=== PATIENT | male | born 1955 | race African-American/Black ===

== ENCOUNTER 2016-07-23 12:14 | Inpatient (IN) | payer MEDICARE, MEDICAID ==
[~2016-07-23] VITALS: Ht 182.9 cm; Wt 105.1 kg
[2016-07-23 13:02] LABS: BASOPHILS # (AUTO) 0.01 K/uL (0.00-0.20); BASOPHILS % (AUTO) 0.3 % (0.0-2.0); EOSINOPHILS # (AUTO) 0.16 K/uL (0.00-0.70); HEMOGLOBIN 14.3 g/dL (13.5-17.5); LYMPHOCYTES # (AUTO) 1.1 K/uL (1.0-4.8); LYMPHOCYTES % (AUTO) 28.4 % (22.0-44.0); MEAN CORPUSCULAR HEMOGLOBIN 27.7 pg (26.0-34.0); MEAN CORPUSCULAR HGB CONC 33.3 G/dL (31.0-37.0); MEAN CORPUSCULAR VOLUME 83 fL (80-100); MONOCYTES # (AUTO) 0.4 K/uL (0.1-1.0); MONOCYTES % (AUTO) 9.1 % (2.0-9.0); NEUTROPHILS # (AUTO) 2.4 K/uL (1.8-7.7); NEUTROPHILS % (AUTO) 58.3 % (40.0-70.0); PLATELET COUNT (AUTO) 286 K/uL (150-450); RED BLOOD CELL COUNT(AUTO) 5.17 MIL/uL (4.50-5.90); RED CELL DISTRIBUTION WIDTH 15.2 % (11.5-14.5)
[2016-07-23 13:11] LABS: RBC MORPHOLOGY COMMENT NORMAL RBC MORPH
[2016-07-23 13:14] LABS: ANION GAP 11 mmol/L (8-16); CALCIUM, TOTAL 8.7 mg/dL (8.8-10.5); CARBON DIOXIDE 29 mmol/L (22-29); CHLORIDE 99 mmol/L (98-107); GLOMERULAR FILTR. RATE CALC > 60 mL/min (>60); POTASSIUM 3.7 mmol/L (3.5-5.1); SODIUM SERUM 139 mmol/L (136-145); UREA NITROGEN, BLOOD 9 mg/dL (7-18)
[2016-07-23 13:19] LABS: ALANINE AMINOTRANSFERASE 21 U/L (12-78); ASPARTATE AMINOTRANSFERASE 22 U/L (15-37); BILIRUBIN,TOTAL 0.9 mg/dL (0.1-1.0)
[2016-07-23] MEDS ORDERED: HALOPERIDOL 5 MG TABLET PO PRN (14:45)
[2016-07-23 17:15] VITALS: BP 140/84
[2016-07-23 19:14] LABS: CHOL/HDL RATIO 4.1 (4.2-7.3)
[2016-07-23 19:51] LABS: ADD UA MICROSCOPIC NO; APPEARANCE,URINE CLEAR (CLEAR); GLUCOSE, URINE (UA) NEGATIVE (NEGATIVE); KETONES,URINE NEGATIVE (NEGATIVE); LEUKOCYTE ESTERASE ,URINE NEGATIVE (NEGATIVE); OCCULT BLOOD,URINE NEGATIVE (NEGATIVE); PH,URINE 6.5 (5.0-8.0); PROTEIN,URINE NEGATIVE (NEGATIVE)
[2016-07-23] MEDS: ZOLPIDEM TARTRATE 10 MG TABLET PO PRN (20:55)
[2016-07-23] MEDS: IBUPROFEN 400 MG TABLET PO PRN (20:56)
[2016-07-23 20:57] VITALS: BP 135/69
[2016-07-24 08:17] VITALS: BP 131/67
[2016-07-24 17:22] VITALS: BP 140/96
[2016-07-24] MEDS: ZOLPIDEM TARTRATE 10 MG TABLET PO PRN (21:03)
[2016-07-24] MEDS: IBUPROFEN 400 MG TABLET PO PRN (21:03)
[2016-07-25] MEDS: CITALOPRAM HYDROBROMIDE 20 MG TABLET PO SCH (08:16)
[2016-07-25 08:18] VITALS: BP 134/85
[2016-07-25 17:00] VITALS: BP 129/79
[2016-07-25] MEDS: ZOLPIDEM TARTRATE 10 MG TABLET PO PRN (21:15)
[2016-07-26] MEDS: IBUPROFEN 400 MG TABLET PO PRN (00:17)
[2016-07-26 00:18] VITALS: BP 137/91
[2016-07-26] MEDS: LORazepam 2 MG TABLET PO PRN (00:18)
[2016-07-26] MEDS: MEMANTINE HCL 5 MG TABLET PO SCH ×2 (08:21→16:02)
[2016-07-26] MEDS: CITALOPRAM HYDROBROMIDE 20 MG TABLET PO SCH (08:21)
[2016-07-26 09:45] VITALS: BP 126/77
[2016-07-26 16:39] VITALS: BP 142/72
[2016-07-27 07:56] LABS: BASOPHILS # (AUTO) 0.02 K/uL (0.00-0.20); BASOPHILS % (AUTO) 0.4 % (0.0-2.0); EOSINOPHILS # (AUTO) 0.11 K/uL (0.00-0.70); EOSINOPHILS % (AUTO) 2.63 % (1.0-6.0); HEMATOCRIT 42.1 % (41-53); HEMOGLOBIN 14.2 g/dL (13.5-17.5); LYMPHOCYTES # (AUTO) 1.3 K/uL (1.0-4.8); LYMPHOCYTES % (AUTO) 30.7 % (22.0-44.0); MEAN CORPUSCULAR HEMOGLOBIN 27.9 pg (26.0-34.0); MEAN CORPUSCULAR HGB CONC 33.8 G/dL (31.0-37.0); MEAN CORPUSCULAR VOLUME 83 fL (80-100); MONOCYTES # (AUTO) 0.5 K/uL (0.1-1.0); MONOCYTES % (AUTO) 10.7 % (2.0-9.0); NEUTROPHILS # (AUTO) 2.4 K/uL (1.8-7.7); NEUTROPHILS % (AUTO) 55.5 % (40.0-70.0); PLATELET COUNT (AUTO) 272 K/uL (150-450); RED BLOOD CELL COUNT(AUTO) 5.08 MIL/uL (4.50-5.90); RED CELL DISTRIBUTION WIDTH 15.2 % (11.5-14.5); WHITE BLOOD COUNT (AUTO) 4.2 K/uL (4.5-11.0)
[2016-07-27 08:00] VITALS: BP 117/71
[2016-07-27] MEDS: CITALOPRAM HYDROBROMIDE 20 MG TABLET PO SCH (08:15)
[2016-07-27] MEDS: MEMANTINE HCL 5 MG TABLET PO SCH ×2 (08:15→16:36)
[2016-07-27] MEDS: BENZOCAINE 10% 7 GM GEL TP PRN (09:29)
[2016-07-27] MEDS: IBUPROFEN 400 MG TABLET PO PRN (09:29)
[2016-07-27 16:18] VITALS: BP 121/78
[2016-07-28 08:00] VITALS: BP 114/73
[2016-07-28] MEDS: CITALOPRAM HYDROBROMIDE 20 MG TABLET PO SCH (08:10)
[2016-07-28] MEDS: MEMANTINE HCL 5 MG TABLET PO SCH ×2 (08:11→16:19)
[2016-07-28 18:16] VITALS: BP 125/87
[2016-07-29 08:00] VITALS: BP 135/77
[2016-07-29] MEDS: CITALOPRAM HYDROBROMIDE 20 MG TABLET PO SCH (09:03)
[2016-07-29] MEDS: MEMANTINE HCL 5 MG TABLET PO SCH ×2 (09:03→16:24)
[2016-07-29 17:10] VITALS: BP 129/93
[2016-07-30 08:00] VITALS: BP 138/89
[2016-07-30] MEDS: CITALOPRAM HYDROBROMIDE 20 MG TABLET PO SCH (08:33)
[2016-07-30] MEDS: MEMANTINE HCL 5 MG TABLET PO SCH ×2 (08:33→16:29)
[2016-07-30] MEDS: LORazepam 2 MG TABLET PO PRN (19:39)
[2016-07-30 20:01] VITALS: BP 130/80
[2016-07-31 08:00] VITALS: BP 149/90
[2016-07-31] MEDS: MEMANTINE HCL 5 MG TABLET PO SCH ×2 (08:17→16:47)
[2016-07-31] MEDS: CITALOPRAM HYDROBROMIDE 20 MG TABLET PO SCH (08:17)
[2016-07-31 17:22] VITALS: BP 134/83
[2016-08-01 03:05] VITALS: BP 136/89
[2016-08-01] MEDS: LORazepam 2 MG TABLET PO PRN ×2 (03:09→16:49)
[2016-08-01] MEDS: MEMANTINE HCL 5 MG TABLET PO SCH ×2 (08:16→16:12)
[2016-08-01] MEDS: CITALOPRAM HYDROBROMIDE 20 MG TABLET PO SCH (08:16)
[2016-08-01 08:50] VITALS: BP 121/74
[2016-08-01 16:45] VITALS: BP 138/80
[2016-08-01] MEDS: ZOLPIDEM TARTRATE 10 MG TABLET PO PRN (20:09)
[2016-08-02] MEDS: MEMANTINE HCL 5 MG TABLET PO SCH ×2 (08:54→15:59)
[2016-08-02] MEDS: CITALOPRAM HYDROBROMIDE 20 MG TABLET PO SCH (08:54)
[2016-08-02 10:36] VITALS: BP 145/90
[2016-08-02 17:10] VITALS: BP 145/85
[2016-08-02] MEDS: ZOLPIDEM TARTRATE 10 MG TABLET PO PRN (21:09)
[2016-08-02] MEDS: ACETAMINOPHEN 325 MG TABLET PO PRN (21:10)
[2016-08-02 21:15] VITALS: BP 139/78
[2016-08-03 01:18] VITALS: BP 136/82
[2016-08-03] MEDS: BENZOCAINE 10% 7 GM GEL TP PRN (01:18)
[2016-08-03 08:10] VITALS: BP 136/93
[2016-08-03] MEDS: CITALOPRAM HYDROBROMIDE 20 MG TABLET PO SCH (09:06)
[2016-08-03] MEDS: MEMANTINE HCL 5 MG TABLET PO SCH ×2 (09:06→16:00)
[2016-08-03 20:02] VITALS: BP 138/82
[2016-08-04] MEDS: LORazepam 2 MG TABLET PO PRN (00:24)
[2016-08-04] MEDS: ACETAMINOPHEN 325 MG TABLET PO PRN ×2 (00:25→22:06)
[2016-08-04 00:27] VITALS: BP 142/80
[2016-08-04] MEDS: BENZOCAINE 10% 7 GM GEL TP PRN ×2 (02:47→11:03)
[2016-08-04] MEDS: CITALOPRAM HYDROBROMIDE 20 MG TABLET PO SCH (08:20)
[2016-08-04] MEDS: MEMANTINE HCL 5 MG TABLET PO SCH ×2 (08:20→16:27)
[2016-08-04 08:30] VITALS: BP 127/76
[2016-08-04] MEDS: IBUPROFEN 400 MG TABLET PO PRN (11:03)
[2016-08-04 16:37] VITALS: BP 118/83
[2016-08-04] MEDS: ZOLPIDEM TARTRATE 10 MG TABLET PO PRN (20:43)
[2016-08-05 02:34] VITALS: BP 129/78
[2016-08-05] MEDS: BENZOCAINE 10% 7 GM GEL TP PRN ×2 (02:34→08:27)
[2016-08-05] MEDS: CITALOPRAM HYDROBROMIDE 20 MG TABLET PO SCH (08:24)
[2016-08-05] MEDS: MEMANTINE HCL 5 MG TABLET PO SCH ×2 (08:24→16:37)
[2016-08-05 08:27] VITALS: BP 130/87
[2016-08-05] MEDS: IBUPROFEN 400 MG TABLET PO PRN (08:27)
[2016-08-05 09:27] VITALS: BP 125/83
[2016-08-05] MEDS ORDERED: CITA20TA9 PO (15:13)
[2016-08-05] MEDS ORDERED: MEMA5 PO (15:16)
[2016-08-05 16:39] VITALS: BP 133/90
[2016-08-06 08:00] VITALS: BP 121/82
[2016-08-06] MEDS: CITALOPRAM HYDROBROMIDE 20 MG TABLET PO SCH (08:05)
[2016-08-06] MEDS: MEMANTINE HCL 5 MG TABLET PO SCH (08:05)
== END 2016-08-06 14:15 | disposition home or self-care (01) | DRG 885 ==
LOC: EMS 12:17 → EEVIPCON 12:17 → 3EX 16:05
PROVIDERS: ADMIT Psychiatry & Neurology Psychiatry; ATTEND Psychiatry & Neurology Psychiatry
DX: F33.2 Major depressive disorder, recurrent severe without psychotic features (principal); R45.851 Suicidal ideations; F25.9 Schizoaffective disorder, unspecified; F41.9 Anxiety disorder, unspecified; F03.90 Unspecified dementia, unspecified severity, without behavioral disturbance, psychotic disturbance, mood disturbance, and anxiety; E83.51 Hypocalcemia; D72.819 Decreased white blood cell count, unspecified; K08.89 Other specified disorders of teeth and supporting structures; Z59.0 Homelessness; Z91.5 Personal history of self-harm
CPT/HCPCS: 99285; G0480